=== PATIENT | female | born 1980 | race American Indian/Alaskan Native ===

== ENCOUNTER 2016-07-15 07:36 | Emergency (ER) | payer OTHER ==
--- NOTE | 2016-07-15 08:32 | Emergency Department Report ---
ED ENT HPI - General Chief complaint: Allergic Reaction Stated complaint: ALLERGIC REACTION/HIVES/DIFF BREATHING Time Seen by Provider: 07/15/16 08:07 Source: patient Mode of arrival: Ambulatory Limitations: No Limitations - History of Present Illness Initial comments: Pt c/o rash x 2 days. Pt denies close contacts with similar symptoms. PT states last weekend, she dog sat and she thinks that aggravated her allergies. PT states last week her allergies were bad. PT states she had itchy eyes, runny nose, sore throat and cough. PT states her symptoms improved, except her sore throat, which worsened yesterday at 1630. PT states it is worse with eating and talking. PT states she googled her symptoms and she thinks she may be allergic to the cold medication that she took on Friday, it had ASA in it. MD complaint: sore throat Onset/Timin -: Gradual, week(s) Location: throat Severity scale (0 -10): 10 Quality: sharp Consistency: constant Improves with: none Worsens with: swallowing, eating Associated Symptoms: cough, pain with swallowing, sore throat, rhinorrhea. denies: fever - Related Data Previous Rx's Medication Instructions Recorded Last Taken Type Acetaminophen/Codeine [Tylenol #3] 1 tab PO Q6H PRN #10 tab 07/15/16 Unknown Rx Ibuprofen [Motrin] 600 mg PO Q8H PRN #15 tablet 07/15/16 Unknown Rx Allergies Allergy/AdvReac Type Severity Reaction Status Date / Time No Known Allergies Allergy Unverified 07/15/16 08:47 ED Dental HPI - General Chief complaint: Allergic Reaction Stated complaint: ALLERGIC REACTION/HIVES/DIFF BREATHING Time Seen by Provider: 07/15/16 08:07 Source: patient Mode of arrival: Ambulatory Limitations: No Limitations - Related Data Previous Rx's Medication Instructions Recorded Last Taken Type Acetaminophen/Codeine [Tylenol #3] 1 tab PO Q6H PRN #10 tab 07/15/16 Unknown Rx Ibuprofen [Motrin] 600 mg PO Q8H PRN #15 tablet 07/15/16 Unknown Rx Allergies Allergy/AdvReac Type Severity Reaction Status Date / Time No Known Allergies Allergy Unverified 07/15/16 08:47 ED Review of Systems ROS: Stated complaint: ALLERGIC REACTION/HIVES/DIFF BREATHING Other details as noted in HPI Comment: All other systems reviewed and negative Constitutional: denies: fever Eyes: other (itching eyes ) ENT: throat pain Respiratory: cough (resolved ). denies: shortness of breath, SOB with exertion , SOB at rest Gastrointestinal: denies: abdominal pain Skin: rash (since sat) ED Past Medical Hx - Past Medical History Previous Medical History?: No Hx Psychiatric Treatment: Yes (major depression) - Surgical History Past Surgical History?: Yes Additional Surgical History: x2 - Social History Smoking Status: Current Every Day Smoker Substance Use Type: None - Medications Home Medications: Home Medications Medication Instructions Recorded Confirmed Last Taken Type Acetaminophen/Codeine [Tylenol #3] 1 tab PO Q6H PRN #10 tab 07/15/16 Unknown Rx Ibuprofen [Motrin] 600 mg PO Q8H PRN #15 tablet 07/15/16 Unknown Rx ED Physical Exam - General Limitations: No Limitations General appearance: alert, in no apparent distress - Head Head exam: Present: atraumatic, normocephalic, normal inspection - Eye Eye exam: Present: normal appearance, PERRL. Absent: conjunctival injection - ENT ENT exam: Present: mucous membranes moist, TM's normal bilaterally, normal external ear exam - Expanded ENT Exam Expanded Mouth exam: Absent: drooling, trismus Throat exam: Positive: tonsillar erythema, tonsillomegaly, tonsillar exudate. Negative: R peritonsillar mass, L peritonsillar mass - Neck Neck exam: Present: normal inspection, full ROM. Absent: tenderness, lymphadenopathy - Respiratory Respiratory exam: Present: normal lung sounds bilaterally. Absent: respiratory distress, wheezes, rales, rhonchi, chest wall tenderness - Cardiovascular Cardiovascular Exam: Present: regular rate, normal rhythm, normal heart sounds - GI/Abdominal GI/Abdominal exam: Present: soft. Absent: distended, tenderness - Extremities Exam Extremities exam: Present: full ROM, normal capillary refill. Absent: tenderness, pedal edema, calf tenderness - Back Exam Back exam: Present: normal inspection, full ROM. Absent: tenderness - Neurological Exam Neurological exam: Present: alert, oriented X3 - Psychiatric Psychiatric exam: Present: normal affect, normal mood - Skin Skin exam: Present: warm, dry, rash (difuse papular rash, erythema), other (no rash to palms or soles.) ED Course Vital Signs 07/15/16 07/15/16 07:43 08:08 Temperature 99.2 F Pulse Rate 88 Respiratory 16 Rate Blood Pressure 122/7 O2 Sat by Pulse 100 100 Oximetry the blood pressure written on intake is 122/78 - Reevaluation(s) Reevaluation #1: 07/15/16 08:36 pt aware of plan of care. no questions at this time. Reevaluation #2: 07/15/16 08:53 pt aware of lab results and plan of care. no questions at this time. Reevaluation #3: 07/15/16 09:44 Pt states her throat is feeling better. pt able to drink fluids without difficulty. pt given strict return precautions. PT verbalizes understanding. - Pulse Oximetry Interpretation Digit-Finger Initial Pulse Oximetry Readin Actions Taken: none ED Medical Decision Making - Differential Diagnosis allergic reaction, hives, strep pharyngitis, scabies Critical care attestation.: If time is entered above; I have spent that time in minutes in the direct care of this critically ill patient, excluding procedure time. ED Disposition Clinical Impression: Strep pharyngitis with scarlet fever Disposition: DISCHARGED TO HOME OR SELFCARE Is pt being admited?: No Does the pt Need Aspirin: No Condition: Stable Instructions: Strep Throat (ED), Scarlet Fever (ED) Additional Instructions: No driving or ETOH after taking Tylenol #3 Rest, increase fluids. return to ED if worsening or concerns Prescriptions: Acetaminophen/Codeine [Tylenol #3] 1 tab PO Q6H PRN #10 tab PRN Reason: Pain , Severe (7-10) Ibuprofen [Motrin] 600 mg PO Q8H PRN #15 tablet PRN Reason: Pain Referrals: PRIMARY CARE, [Primary Care Provider] - 3-5 Days ILSA MIRANDA MD [Staff Physician] - 3-5 Days [facility] [Outside] - 3-5 Days Forms: Work/School Release Form(ED) Time of Disposition: 09:46
[2016-07-15] MEDS ORDERED: BICILLIN L-A IM ONE (08:50)
[2016-07-15] MEDS ORDERED: TORADOL IM ONE (08:50)
[2016-07-15 10:17] VITALS: BP 130/80
== END 2016-07-15 10:17 | disposition home or self-care (01) ==
LOC: ED 07:36
DX: J02.0 Streptococcal pharyngitis (principal); A38.9 Scarlet fever, uncomplicated
CPT/HCPCS: 87430; 96372; 99282; J0561; J1885; J2930